=== PATIENT | female | born 1985 | race Caucasian/White ===

== ENCOUNTER 2017-08-15 23:35 | Inpatient (IN) | payer OTHER ==
--- NOTE | 2017-08-16 00:10 | HP ---
Past Medical History - Admission Chief Complaint: Labor pain History of Present Illness: 32 yo , @ 39 weeks gestation, EDC 08/17/17, presents c/o labor pain. She denies any vaginal bleeding nor rupture of membrane. History Source: Patient Limitations to Obtaining History: No Limitations - Past Medical History ...: 4 ...Para: 2 ...EDC by Sono: 08/17/17 - Past Surgical History Past Surgical History: Yes: None Hx Myomectomy: No Hx Transabdominal Cerclage: No - Alcohol/Substance Use Hx Alcohol Use: No History of Substance Use: reports: None - Social History Usual Living Arrangement: Yes: With Spouse History of Recent Travel: No Home Medications - Allergies Allergies/Adverse Reactions: Allergies Allergy/AdvReac Type Severity Reaction Status Date / Time No Known Allergies Allergy Verified 08/15/17 23:59 - Home Medications Home Medications: Ambulatory Orders Vitamins (Sjr) - 1 tab PO DAILY 08/15/17 Ferrous Sulfate [Feosol] 325 mg PO DAILY 08/16/17 Family Disease History - Family Disease History Family History: Unremarkable Review of Systems - Review of Systems Constitutional: reports: No Symptoms Eyes: reports: No Symptoms HENT: reports: No Symptoms Neck: reports: No Symptoms Cardiovascular: reports: No Symptoms Respiratory: reports: No Symptoms Gastrointestinal: reports: No Symptoms Genitourinary: reports: Pain Breasts: reports: No Symptoms Reported Musculoskeletal: reports: No Symptoms Integumentary: reports: No Symptoms Neurological: reports: No Symptoms Endocrine: reports: No Symptoms Hematology/Lymphatic: reports: No Symptoms Psychiatric: reports: No Symptoms Pain Intensity: 8 Physical Exam - Maternity Constitutional: Yes: Well Nourished Eyes: Yes: Conjunctiva Clear HENT: Yes: Atraumatic Neck: Yes: Supple Cardiovascular: Yes: Regular Rate and Rhythm Lungs: Clear to auscultation Breast(s): Yes: WNL - Abdominal Exam/OB Number of Fetuses: Single Presentation: Vertex Contractions: Yes Regularity: Irregular Intensity: Mod/Strong - Vaginal Exam/OB Vaginal Bleediing: No Dilatation (cm): 4 Effacement (%): 90 Amniotic Membrane Status: Intact Presentation: Vertex/Position Station: -2 - Physical Exam Musculoskeletal: Yes: WNL Extremities: Yes: WNL Integumentary: Yes: WNL ...Motor Strength: WNL Psychiatric: Yes: Alert, Oriented Problem List - Problems (1) Pain during labor Code(s): O99.89 - OTH DISEASES AND CONDITIONS COMPL PREG/CHLDBRTH R52 - PAIN, UNSPECIFIED Assessment/Plan Active labor Admit to L&D Analgesia as needed Anticipate
[2017-08-16] MEDS: DEXTROSE 5%-LACTATED RINGERS 1,000 ML IV SCH ×2 (00:15→03:45)
[2017-08-16 00:20] VITALS: BMI 34.0
[2017-08-16 00:44] LABS: BASOPHIL 0.6 % (0-2.0); EOSINOPHIL 0.1 % (0-4.5); MCH 29.7 pg (25.7-33.7); MCHC 33.4 g/dl (32.0-36.0); MEAN CELL VOLUME 88.8 fl (80-96); MEAN PLT VOLUME 9.2 fl (7.5-11.1); NEUTROPHILS 76.9 % (42.8-82.8); PLATELET COUNT 181 K/MM3 (134-434); RDW 13.2 % (11.6-15.6); WHITE BLOOD COUNT 9.4 K/mm3 (4.0-10.0)
[2017-08-16 00:58] LABS: INR 0.91 (0.82-1.09)
[2017-08-16 01:00] LABS: ACTIVATED PTT 25.1 SECONDS (26.9-34.4)
[2017-08-16 01:03] LABS: ANION GAP 13 (8-16); CALCIUM 8.6 mg/dL (8.5-10.1); CO2 20 mmol/L (21-32); CREATININE 0.4 mg/dL (0.55-1.02); GLUCOSE,RANDOM 76 mg/dL (74-106)
[2017-08-16] MEDS ORDERED: BUTORPHANOL TARTRATE 1 MG/ML VIAL IVPUSH PRN (01:41)
[2017-08-16] MEDS ORDERED: PROMETHAZINE HCL 25 MG/1 ML VIAL IVPUSH PRN (01:42)
[2017-08-16] MEDS ORDERED: OXYTOCIN 15 UNITS/ LR 250 ML 250 ML IVPB SCH (01:45)
[2017-08-16] MEDS ORDERED: ELECTROLYTE-148 SOLN 500 ML IV ONE (10:04)
[2017-08-16] MEDS ORDERED: CITRIC ACID/SODIUM CITRATE 30 ML UNIT-DOSE CUP PO ONE (10:04)
--- NOTE | 2017-08-16 10:04 | PN ---
Progress Note (short form) - Note Progress Note: 32 yrs EDc 08/17/17 39.5/[address] Calvert she handed over labor management to me at 8.30 Am. 2 11/2002, & 01/2005 . GBS neg review of chart & monitor strip was done 00.35 hr AROM done . 1.35 hr 4-5 cm 6.45 hr 6cm 5..20 hr Stadol 2 mg + 25 mg phenrgan iv stat was given Monitor strp reviewed , uC 4-5 min FHR tracing cat-1 9.[address] garcia 7-8 cm /100%/0 station/mr/face presentation UC 3-5 min, FHR 130-140 cat-1 plan ; delivery by primary c/section Selected Entries 08/16/17 09:00 Temperature 98.6 F Pulse Rate 68 Blood Pressure 125/67 Blood Pressure 86 Mean Laboratory Tests 08/16/17 08/16/17 08/16/17 00:30 00:30 00:30 WBC 9.4 Hgb 12.9 Hct 38.7 Plt Count 181 PT with INR 10.00 INR 0.91 PTT (Actin FS) 25.1 L Sodium 137 Potassium 4.2 Chloride 104 Carbon Dioxide 20 L BUN 5 L Creatinine 0.4 L Random Glucose 76 Calcium 8.6
[2017-08-16] MEDS ORDERED: ELECTROLYTE-148 SOLN 1,000 ML IV SCH (10:15)
[2017-08-16] MEDS ORDERED: ONDANSETRON 4 MG/2 ML VIAL IVPB PRN (11:08)
[2017-08-16] MEDS ORDERED: METHYLERGONOVINE MALEATE 0.2 MG/1 ML AMP IM PRN (11:28)
[2017-08-16] MEDS ORDERED: IBUPROFEN 800 MG/8 ML IJ IVPB PRN (11:30)
--- NOTE | 2017-08-16 11:44 | OP ---
Operative Note - Note: Operative Date: 08/16/17 Pre-Operative Diagnosis: 39.5/7 weeks , labor, malpresenttion ( face) Operation: Primary LFTC/section Findings: 10.50 AM , Baby Girl, RMT ( Right mento transverse), 9/9 , Wt 8'7" Both tubes & ovaries normal Dr Kenneth Erazo time broker present in the OR IV 1 gm Ancef was given Surgeon: Leta Panda Outsole Tacker: Huang Brooks Anesthesiologist/ENVIRONMENTAL SERVICES MANAGER: Cassandra Wang Anesthesia: Spinal Specimens Removed: placenta. cord blood Estimated Blood Loss (mls): 600 Drains, Volume Out (mls): 100 (hunter , guillermina color )
[2017-08-16] MEDS: D5W-LR W/ 20 UNITS OXYTOCIN 1,000 ML IV SCH ×2 (12:57→22:25)
--- NOTE | 2017-08-16 13:04 | OP ---
DATE OF OPERATION: 08/16/2017 PREOPERATIVE DIAGNOSIS: At 39-5/7 weeks in active labor, face presentation. OPERATION DONE: Primary low-flap transverse section. SURGEON: Leta Panda MD FIELD CANE SCALER HELPER SURGEON: BRANDON Reed ANESTHESIOLOGIST: Cassandra Wang MD ANESTHESIA: Spinal. BIOTECH PRODUCTION SPECIALIST: Castro Cooper MD FINDINGS: This is a 32-year-old, 4, para 2-0-1-2 who was admitted in labor last night. She dilated up to 7-8 cm and face presentation was diagnosed and patient is taken to the OR. DESCRIPTION OF PROCEDURE: Abdomen was shaved. Olmos catheter was placed. Patient was taken to the operating room table, and then, spinal anesthesia was given. The abdomen was painted and draped in the usual manner. Pfannenstiel incision was made. The skin, subcutaneous tissue, anterior rectus sheath was incised transversely. Bleeding points were clamped and cauterized. Rectus muscle was from the rectus sheath. Parietal peritoneum was opened vertically.Bladder peritoneum was incised transversely. Lower uterine segment was incised transversely. Amniot fluid was clear. Baby was delivered from the RMT position (right mentum transverse position) at 10:50 a.m. Apgars were 9 and 9. Baby's weight was 8 pounds 7 ounces. Cord was clamped, cut. Cord blood was collected. Placenta was removed completely with the membranes. Then, the uterine cavity was cleaned completely, and the uterine incision was closed in 2 layers. First layer was a continuous locking with a Biosyn 0 suture. Second layer was a continuous intermittent locking with a Biosyn 0 suture. Hemostasis was checked, and the bladder peritoneum was closed with a Biosyn 0 suture, continuous suture. Both the tubes and ovaries were normal. Sponge, instrument, needle count was correct. The closure of the abdomen was done. Parietal peritoneum was closed with a Vicryl 0 suture. Muscles were approximated together with a Vicryl 0 suture with interrupted sutures . Anterior rectus sheath _under flaps were checked for hemostasis. Anterior rectus sheath was closed with a Vicryl 0 suture, continuous suture. Subcutaneous tissue hemostasis was checked, and then, subcutaneous tissue interrupted sutures were taken. The skin was approximated with marisa. Pressure dressing was given. Patient tolerated the procedure well and transferred to the recovery room in stable condition. EBL 600 ml, Olmos out put 100 ml intra op.,Iv ancef 1 gm prior to incision was given. Jasvir [id number] MTDD
--- NOTE | 2017-08-16 15:52 | PN ---
Delivery - Delivery Section: Primary, Low Flap Transverse (39.5/7 weeks, mapresentation ( Face) , in Active Labor) Type of Anesthesia: Spinal Episiotomy/Laceration: None EBL (cc): 600 (hunter out put 100 ml guillermina color ) Delivery, Single - Stages of Labor Date 1st Stage Initiatied: 08/15/17 Time 1st Stage Initiated: 23:00 Date of Delivery: 08/16/17 Time of Delivery: 10:50 Time Placenta Delivered: 10:52 Placenta: Yes: Manual Removal, Uterine Exploration - Condition of Phlebotomist/Project Director Present: Yes Name: Castro Cooper Infant Gender: Female Weight: 8 lb 7 oz Total Hours ROM (Hrs/Mins): 10hrs 17min - 1 Minute Total Score: 9 5 Minutes Total Score: 9 - Means Feeding Plan Initial Plan: Exclusive throughout hospitalization Remarks - Remarks Remarks: 32 years 39.5/7 weeks , GBS neg, admitted in labor by Dr Calvert PNPrudencio at [address] [place] [address] . She received stadol 2 mg + phenrgan 25 mg for labor analgesia face presentation was diagnosed when she was 7 cm dilated hence pt was taken for c/section Itra op course was uneventful
[2017-08-16] MEDS ORDERED: DEXTROSE 5%-WATER - 50 ML IVPB ONE (17:03)
[2017-08-16] MEDS ORDERED: ceFAZolin SODIUM 1 GM VIAL ONE (17:03)
[2017-08-16] MEDS: CEFAZOLIN 1 GM in DEXTROSE 5%-WATER - 50 ML IVPB SCH (17:05)
[2017-08-17] MEDS: CEFAZOLIN 1 GM in DEXTROSE 5%-WATER - 50 ML IVPB SCH ×2 (01:18→10:22)
[2017-08-17] MEDS: SIMETHICONE 80 MG TAB.CHEW (FP) PO PRN ×4 (05:30→21:11)
[2017-08-17] MEDS: IBUPROFEN 600 MG TABLET (FP) PO PRN ×4 (05:30→21:11)
[2017-08-17 07:54] LABS: BASOPHIL 0.4 % (0-2.0); EOSINOPHIL 0.3 % (0-4.5); MCH 30.3 pg (25.7-33.7); MEAN PLT VOLUME 8.6 fl (7.5-11.1); NEUTROPHILS 75.4 % (42.8-82.8); PLATELET COUNT 131 K/MM3 (134-434); RDW 14.1 % (11.6-15.6); WHITE BLOOD COUNT 10.5 K/mm3 (4.0-10.0)
[2017-08-17] MEDS ORDERED: oxyCODONE HCL 5 MG TABLET PO PRN (08:00)
--- NOTE | 2017-08-17 08:12 | PN ---
Progress Note (short form) - Note Progress Note: Anesthesia Pain Pt seen and examined S:alert and oriented comfortable O: Vital Signs Temperature 98.6 F 08/17/17 06:00 Pulse Rate 76 08/17/17 06:00 Respiratory Rate 18 08/17/17 06:00 Blood Pressure 114/58 08/17/17 06:00 O2 Sat by Pulse Oximetry (%) 100 08/16/17 12:15 CBC, BMP 08/17/17 07:46 08/16/17 00:30 A/P: s/p c section doing well post op continue current care Papi Tello MD
[2017-08-17] MEDS ORDERED: DIPHTH,PERTUSS(ACELL),TET 0.5 ML DISP.SYRIN IM ONE (10:00)
[2017-08-17] MEDS ORDERED: FLU VACC QS2017-18 36MOS UP/PF 60 MCG/0.5 ML SYRINGE IM ONE (10:00)
[2017-08-17] MEDS ORDERED: DEXTROSE 5%-WATER - 50 ML IVPB ONE (10:16)
[2017-08-17] MEDS ORDERED: ceFAZolin SODIUM 1 GM VIAL ONE (10:16)
[2017-08-17] MEDS: ENOXAPARIN NA (PORCINE) 40 MG/0.4 ML DISP.SYRIN SQ SCH (10:22)
[2017-08-17] MEDS: PRENATAL VITAMINS W/ FOLIC ACID TABLET (FP) PO SCH (10:23)
[2017-08-17] MEDS ORDERED: BISACODYL 10 MG SUPP.RECT RC PRN (11:28)
--- NOTE | 2017-08-17 16:28 | PN ---
Progress Note (short form) - Note Progress Note: pod 1 doing well, no c/o Last Vital Signs Temp Pulse Resp BP Pulse Ox 98.5 F 77 18 108/59 100 08/17/17 10:00 08/17/17 10:00 08/17/17 13:00 08/17/17 10:00 08/16/17 12:15 Last Vital Signs Temp Pulse Resp BP Pulse Ox 98.5 F 77 18 108/59 100 08/17/17 10:00 08/17/17 10:00 08/17/17 13:00 08/17/17 10:00 08/16/17 12:15 CBC, BMP 08/17/17 07:46 08/16/17 00:30 abdomen soft , no distension, no cva incision dry, clean no calf tenderness plan ambulate , cbc in am
[2017-08-17] MEDS: FERROUS SO4 325 MG TABLET (FP) PO SCH (21:12)
[2017-08-18] MEDS: IBUPROFEN 600 MG TABLET (FP) PO PRN ×2 (06:13→16:40)
[2017-08-18] MEDS: SIMETHICONE 80 MG TAB.CHEW (FP) PO PRN ×2 (06:14→16:40)
[2017-08-18] MEDS: FERROUS SO4 325 MG TABLET (FP) PO SCH ×2 (09:17→22:01)
[2017-08-18] MEDS: ENOXAPARIN NA (PORCINE) 40 MG/0.4 ML DISP.SYRIN SQ SCH (09:17)
[2017-08-18] MEDS: PRENATAL VITAMINS W/ FOLIC ACID TABLET (FP) PO SCH (09:17)
[2017-08-18] MEDS: oxyCODONE HCL 5 MG TABLET PO PRN (13:16)
--- NOTE | 2017-08-18 14:06 | PN ---
Post Progress Note Post Day: 2 Type of Delivery: Primary C/S Vital Signs: Vital Signs Temperature 99 F 08/17/17 21:52 Pulse Rate 78 08/17/17 21:52 Respiratory Rate 20 08/17/17 21:52 Blood Pressure 96/57 08/17/17 21:52 O2 Sat by Pulse Oximetry (%) 100 08/17/17 21:00 Breast Exam: Yes: Soft Uterus: Yes: Fundus Firm Incision: Yes: Rosana intact Abdomen/GI: Yes: Abdomen soft Lochia: Yes: Rubra Lochia, amount: Small Extremities: Yes: Calves non-tender Perineum: Yes: Intact Activity: Ambulating - Labs Labs: CBC WBC 10.5 K/mm3 (4.0-10.0) H 08/17/17 07:46 RBC 3.47 M/mm3 (3.60-5.2) L D 08/17/17 07:46 Hgb 10.5 GM/dL (10.7-15.3) L D 08/17/17 07:46 Hct 30.9 % (32.4-45.2) L D 08/17/17 07:46 MCV 89.0 fl (80-96) 08/17/17 07:46 MCH 30.3 pg (25.7-33.7) 08/17/17 07:46 MCHC 34.0 g/dl (32.0-36.0) 08/17/17 07:46 RDW 14.1 % (11.6-15.6) 08/17/17 07:46 Plt Count 131 K/MM3 (134-434) L D 08/17/17 07:46 MPV 8.6 fl (7.5-11.1) 08/17/17 07:46 Neutrophils % 75.4 % (42.8-82.8) 08/17/17 07:46 Lymphocytes % 16.8 % (8-40) 08/17/17 07:46 Monocytes % 7.1 % (3.8-10.2) 08/17/17 07:46 Eosinophils % 0.3 % (0-4.5) D 08/17/17 07:46 Basophils % 0.4 % (0-2.0) 08/17/17 07:46 Assessment/Plan continue care oob reg diet
[2017-08-18] MEDS: SENNOSIDES/DOCUSATE COMBO (SENNA PLUS) TABLET (UD) PO PRN (22:01)
--- NOTE | 2017-08-18 23:12 | DS ---
Physical Exam-PICKER TENDER Vital Signs: Vital Signs Temperature 98.0 F 08/18/17 20:30 Pulse Rate 76 08/18/17 20:30 Respiratory Rate 18 08/18/17 20:30 Blood Pressure 113/72 08/18/17 20:30 O2 Sat by Pulse Oximetry (%) 100 08/17/17 21:00 Constitutional: Yes: Well Nourished Eyes: Yes: WNL HENT: Yes: WNL Neck: Yes: WNL Cardiovascular: Yes: WNL Respiratory: Yes: WNL Gastrointestinal: Yes: WNL, Normal Bowel Sounds, Soft. No: Distention ...Rectal Exam: Yes: WNL Renal/: Yes: WNL ....Post : Yes: Uterus firm, Uterus non-tender, Moderate lochia rubra Breast(s): Yes: WNL Musculoskeletal: Yes: WNL Extremities: Yes: WNL. No: Calf Tenderness Edema: Yes Wound/Incision: Yes: Clean/Dry, Well Approximated, Rosana Intact, Steri Strips , Open to air. No: Draining, Reddened, Bleeding Neurological: Yes: WNL, Alert, Oriented ...Motor Strength: WNL Psychiatric: Yes: WNL, Alert, Oriented Labs: CBC, BMP 08/17/17 07:46 08/16/17 00:30 Delivery - Delivery Section: Primary, Low Flap Transverse (39.5/7 weeks, mapresentation ( Face) , in Active Labor) Type of Anesthesia: Spinal Episiotomy/Laceration: None EBL (cc): 600 (hunter out put 100 ml guillermina color ) Delivery, Single - Stages of Labor Date 1st Stage Initiatied: 08/15/17 Time 1st Stage Initiated: 23:00 Date of Delivery: 08/16/17 Time of Delivery: 10:50 Time Placenta Delivered: 10:52 Placenta: Yes: Manual Removal, Uterine Exploration - Condition of Infant Shotgun Shell Loading Machine Operator/Tank Car Loader Present: Yes Name: Castro Cooper Gender: Female Weight: 8 lb 7 oz Total Hours ROM (Hrs/Mins): 10hrs 17min - 1 Minute Total Score: 9 5 Minutes Total Score: 9 - Feeding Plan Initial Plan: Exclusive throughout hospitalization Remarks - Remarks Remarks: 32 years 39.5/7 weeks , GBS neg, admitted in labor by Dr Calvert [facility] at [address] [place] [address] . She received stadol 2 mg + phenrgan 25 mg for labor analgesia face presentation was diagnosed when she was 7 cm dilated hence pt was taken for c/section Intra op course was uneventful . post op course was uneventful pt will rtc in 1 week for wound check & rosana removal. Discharge Discharge Summary Reason For Visit: LABOR Current Active Problems Delivery by emergency section (Acute) Face presentation of fetus (Acute) Pain during labor (Acute) with 39 completed weeks gestation (Acute) Condition: Stable - Instructions Diet, Activity, Other Instructions: Post Instructions DIET: Continue good diet high in protein, calcium, and iron rich foods. Drink at least eight (8) glasses of water daily in addition to other fluids. ___ Regular diet MEDICATIONS: Continue vitamins and iron as previously directed. Motrin and Tylenol may be taken for minor discomfort. ACTIVITY: Mild to moderate exercise may be started in two (2) weeks. Take frequent rest periods. Resume normal activity after six (6) week check up. WOUND CARE OF OPERATIVE SITE: Continue use of perineal bottle until vaginal discharge stops. Keep area clean. Shower daily. Keep abdominal wound dry. Report any drainage or redness to physician. Tub baths, tampons and douches are not permitted for [address] Breast feeding ct & or Bottle feeding BREAST CARE: (For those that are not breast feeding): If engorgement occurs: Wear tight fitting bra. Take Tylenol or Motrin for pain. Apply cold packs (ice in bags to each breast ) FAMILY PLANNING: There are many control alternatives to pursue and they should be discussed at your first office visit. You may resume sexual activity after your six (6) week check up. (Remember, breast feeding is not a contraceptive) NEXT PHYSICIAN APPOINTMENT: Be certain to call for a one (1.) week appointment, unless otherwise directed. RTC for wound check, rosana removal. Call Clinic or got to Emergency Dept if you have any of the following: Heavy vaginal bleeding Painful urination Leg pain Unusual odor noted to vaginal bleeding High fever Red streaking noted on breast Referrals: Adrián Richter MD [Staff Physician] - Disposition: HOME - Home Medications Comprehensive Discharge Medication List: Ambulatory Orders RX: Vitamins (Sjr) - 1 tab PO DAILY 08/15/17 Ferrous Sulfate [Feosol] 325 mg PO DAILY 08/16/17 Acetaminophen [Tylenol Extra Strength] 500 mg PO BID #30 tablet 08/18/17 RX: Ferrous Sulfate [Feosol] 325 mg PO BID tab 08/18/17 RX: Ibuprofen [Motrin -] 600 mg PO Q4H PRN #30 tablet 08/18/17 RX: Vitamins (Sjr) - 1 tab PO DAILY tablet 08/18/17
[2017-08-19] MEDS: IBUPROFEN 600 MG TABLET (FP) PO PRN ×4 (00:01→19:11)
[2017-08-19] MEDS: SIMETHICONE 80 MG TAB.CHEW (FP) PO PRN ×4 (00:01→19:10)
[2017-08-19] MEDS: oxyCODONE HCL 5 MG TABLET PO PRN ×3 (05:37→19:10)
[2017-08-19 07:15] LABS: BASOPHIL 0.4 % (0-2.0); EOSINOPHIL 1.7 % (0-4.5); MCH 30.2 pg (25.7-33.7); MCHC 33.6 g/dl (32.0-36.0); MEAN CELL VOLUME 89.8 fl (80-96); MEAN PLT VOLUME 8.2 fl (7.5-11.1); NEUTROPHILS 68.5 % (42.8-82.8); PLATELET COUNT 164 K/MM3 (134-434); RDW 13.8 % (11.6-15.6); WHITE BLOOD COUNT 6.8 K/mm3 (4.0-10.0)
[2017-08-19] MEDS: FERROUS SO4 325 MG TABLET (FP) PO SCH ×2 (09:14→22:00)
[2017-08-19] MEDS: ENOXAPARIN NA (PORCINE) 40 MG/0.4 ML DISP.SYRIN SQ SCH (09:14)
[2017-08-19] MEDS: PRENATAL VITAMINS W/ FOLIC ACID TABLET (FP) PO SCH (09:14)
[2017-08-19] MEDS: SENNOSIDES/DOCUSATE COMBO (SENNA PLUS) TABLET (UD) PO PRN (19:11)
[2017-08-20] MEDS: SIMETHICONE 80 MG TAB.CHEW (FP) PO PRN ×2 (04:05→11:19)
[2017-08-20] MEDS: IBUPROFEN 600 MG TABLET (FP) PO PRN ×2 (04:05→08:21)
[2017-08-20] MEDS: oxyCODONE HCL 5 MG TABLET PO PRN (04:05)
--- NOTE | 2017-08-20 07:01 | PN ---
Post Progress Note Post Day: 3 Type of Delivery: Primary C/S Vital Signs: Vital Signs Temperature 98.9 F 08/19/17 22:00 Pulse Rate 78 08/19/17 22:00 Respiratory Rate 18 08/19/17 22:00 Blood Pressure 120/71 08/19/17 22:00 O2 Sat by Pulse Oximetry (%) 100 08/17/17 21:00 Breast Exam: Yes: Soft Uterus: Yes: Fundus Firm Incision: Yes: Rosana intact Abdomen/GI: Yes: Abdomen soft Lochia: Yes: Rubra Lochia, amount: Small Perineum: Yes: Intact Activity: Ambulating - Labs Labs: CBC WBC 6.8 K/mm3 (4.0-10.0) D 08/19/17 06:25 RBC 3.74 M/mm3 (3.60-5.2) 08/19/17 06:25 Hgb 11.3 GM/dL (10.7-15.3) 08/19/17 06:25 Hct 33.6 % (32.4-45.2) 08/19/17 06:25 MCV 89.8 fl (80-96) 08/19/17 06:25 MCH 30.2 pg (25.7-33.7) 08/19/17 06:25 MCHC 33.6 g/dl (32.0-36.0) 08/19/17 06:25 RDW 13.8 % (11.6-15.6) 08/19/17 06:25 Plt Count 164 K/MM3 (134-434) D 08/19/17 06:25 MPV 8.2 fl (7.5-11.1) 08/19/17 06:25 Neutrophils % 68.5 % (42.8-82.8) 08/19/17 06:25 Lymphocytes % 23.0 % (8-40) D 08/19/17 06:25 Monocytes % 6.4 % (3.8-10.2) 08/19/17 06:25 Eosinophils % 1.7 % (0-4.5) D 08/19/17 06:25 Basophils % 0.4 % (0-2.0) 08/19/17 06:25 Assessment/Plan doing well reg diet oob
--- NOTE | 2017-08-20 07:02 | PN ---
Post Progress Note Post Day: 4 Type of Delivery: Primary C/S Vital Signs: Vital Signs Temperature 98.9 F 08/19/17 22:00 Pulse Rate 78 08/19/17 22:00 Respiratory Rate 18 08/19/17 22:00 Blood Pressure 120/71 08/19/17 22:00 O2 Sat by Pulse Oximetry (%) 100 08/17/17 21:00 Breast Exam: Yes: Soft Incision: Yes: Rosana intact Abdomen/GI: Yes: Abdomen soft Lochia: Yes: Rubra Lochia, amount: Small Extremities: Yes: Calves non-tender Perineum: Yes: Intact Activity: Ambulating - Labs Labs: CBC WBC 6.8 K/mm3 (4.0-10.0) D 08/19/17 06:25 RBC 3.74 M/mm3 (3.60-5.2) 08/19/17 06:25 Hgb 11.3 GM/dL (10.7-15.3) 08/19/17 06:25 Hct 33.6 % (32.4-45.2) 08/19/17 06:25 MCV 89.8 fl (80-96) 08/19/17 06:25 MCH 30.2 pg (25.7-33.7) 08/19/17 06:25 MCHC 33.6 g/dl (32.0-36.0) 08/19/17 06:25 RDW 13.8 % (11.6-15.6) 08/19/17 06:25 Plt Count 164 K/MM3 (134-434) D 08/19/17 06:25 MPV 8.2 fl (7.5-11.1) 08/19/17 06:25 Neutrophils % 68.5 % (42.8-82.8) 08/19/17 06:25 Lymphocytes % 23.0 % (8-40) D 08/19/17 06:25 Monocytes % 6.4 % (3.8-10.2) 08/19/17 06:25 Eosinophils % 1.7 % (0-4.5) D 08/19/17 06:25 Basophils % 0.4 % (0-2.0) 08/19/17 06:25 Other Findings, Remarks: oocasional discharge Assessment/Plan oob reg diet pain meds
[2017-08-20 10:06] VITALS: BP 126/77; PULSE 74; TEMP 99.3
[2017-08-20] MEDS: PRENATAL VITAMINS W/ FOLIC ACID TABLET (FP) PO SCH (10:14)
[2017-08-20] MEDS: FERROUS SO4 325 MG TABLET (FP) PO SCH (10:14)
[2017-08-20] MEDS: ENOXAPARIN NA (PORCINE) 40 MG/0.4 ML DISP.SYRIN SQ SCH (10:15)
--- NOTE | 2017-08-20 11:06 | PATH ---
Surgical Pathology Report Patient Name: ANA PAULA MOSCOSO Med. Rec. #: [id number] /Age/Gender: 1985 (Age: 32) / F Account: [id number] Location: [facility] OBS/PEOPLE GREETER Taken: 08/16/2017 Received: 08/17/2017 Reported: 08/20/2017 Physicians: Leta Panda M.D. Specimen(s) Received PLACENTA Clinical History 39.5 weeks-now presentation face Posterior placenta with marginal cord insertion x2, positive PPD, hypothyroidism, depression Final Diagnosis PLACENTA, DELIVERY: DISRUPTED THIRD TRIMESTER PLACENTA WITH SUBCHORIONIC FIBRIN DEPOSITION, MARGINALLY INSERTED THREE-VESSEL UMBILICAL CORD, AND MECONIUM HISTIOCYTOSIS AND AMNION HYPERPLASIA OF PLACENTAL MEMBRANES. Electronically Signed Sourav Armstrong M.D. Gross Description The specimen is received fresh labeled placenta and is a 572 gram, 20 x 17 x 3 cm. placenta with attached membranes and umbilical cord. The attached membranes are glistening and mucoid and insert marginally. The umbilical cord measures 65 cm. in length and averages 1.0 cm. in diameter. The cord inserts marginally. No true knots or strictures are identified. Cut surface of the umbilical cord reveals 3 vessels. The surface is ferrer-blue with minimal fibrin deposition and appropriate caliber vessels. The maternal surface is markedly disrupted and fragmented. Sectioning reveals red-brown, spongy parenchyma. No lesions are identified. Botany Technician sections are submitted in three cassettes as follows: 1- membrane rolls and umbilical cord; 2-3- full thickness sections of placenta. [facility]/08/17/2017 [facility]/08/17/2017
== END 2017-08-20 13:30 | disposition home or self-care (01) | DRG 540 ==
LOC: JLDR 23:35 → J3W 08-16 13:29
PROVIDERS: ADMIT Obstetrics & Gynecology; ATTEND Obstetrics & Gynecology
PROC: 10D00Z1 Extraction of Products of Conception, Low, Open Approach (ICD-10-PCS; principal; 2017-08-16)
DX: O32.3XX0 Maternal care for face, brow and chin presentation, not applicable or unspecified (principal); Z3A.39 39 weeks gestation of pregnancy; Z37.0 Single live birth
CPT/HCPCS: 36415; 80048; 85025; 85610; 85730; 86593; 86850; 86900; 86901; 88307-TC; 90686; 90715; G0008